=== PATIENT | male | born 1955 | race African-American/Black ===

== ENCOUNTER 2020-01-26 13:13 | Inpatient (IN) | payer OTHER ==
--- NOTE | 2020-01-26 13:38 | BHS.RME ---
Substance Use & Tx History - Substance Use History Alcohol Substance amount: 06/28 vodka Frequency of use: Daily Substance route: Oral Date of Last Use: 01/26/20 (9am) Nicotine Substance amount: 1 pack Frequency of use: Daily Substance route: Smoking Date of Last Use: 01/26/20 Physical/Psych/Mental Status - Behavior General Behavior: Increased activity (restlessness, agitation) Eye Contact: Normal - Cooperativeness Cooperativeness: Cooperative - Thinking Thought Processes: Tight, Logical, Goal Directed - Physical Health Problems Is patient presently having any pain?: No Does patient presently have any injuries (include location): No Does patient currently have a fever: No Is patient : No CIWA Nausea/Vomitin-Mild Nausea/No Vomiting Muscle Tremors: 4-Moderate,w/Arms Extend Anxiety: 3 Agitation: 3 Paroxysmal Sweats: 4-Forehead w/Sweat Beads Orientation: 0-Oriented Tacttile Disturbances: 0-None Auditory Disturbances: 0-None Visual Disturbances: 0-None Headache: 0-None Present CIWA-Ar Total Score: 15
[2020-01-26 14:16] VITALS: BMI 23.0
--- NOTE | 2020-01-26 14:24 | HP ---
CIWA Score Nausea/Vomitin-Mild Nausea/No Vomiting Muscle Tremors: 4-Moderate,w/Arms Extend Anxiety: 3 Agitation: 3 Paroxysmal Sweats: 4-Forehead w/Sweat Beads Orientation: 0-Oriented Tacttile Disturbances: 0-None Auditory Disturbances: 0-None Visual Disturbances: 0-None Headache: 0-None Present CIWA-Ar Total Score: 15 - Admission Criteria OASAS Guidelines: Admission for Medically Managed Detox: Requires at least one of the followin. CIWA greater than 12 2. Seizures within the past 24 hours 3. Delirium tremens within the past 24 hours 4. Hallucinations within the past 24 hours 5. Acute intervention needed for co occurring medical disorder 6. Acute intervention needed for co occurring psychiatric disorder 7. Severe withdrawal that cannot be handled at a lower level of care (continued vomiting, continued diarrhea, abnormal vital signs) requiring intravenous medication and/or fluids 8. Admitting History and Physical - Admission Chief Complaint: " I need to be on detox." History of Present Illness: 64 year old male with history of alcohol dependence with intoxication. He was last here in 2014 and did well. However, he relapsed and is now out of control. Alcohol: 1/5 vodka daily, started drinking at age 13 and last used 01/26/20. 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 He has no legal issues at this time. Urine Tox: Negative for all other substances. MILAGRO=0.232 CIWA=15 He meets criteria for detox as he poses a high risk for outpatient detox and has untreated psychiatric co-morbidity. History Source: Patient Limitations to Obtaining History: No Limitations - Past Medical History Cardiovascular: Yes: CAD Musculoskeletal: Yes: Other (peripheral vascular disease) - Smoking History Smoking history: Current every day smoker Have you smoked in the past 12 months: Yes Aproximately how many cigarettes per day: 20 - Alcohol/Substance Use Hx Alcohol Use: Yes Admission ROS S - HPI Allergies/Adverse Reactions: Allergies Allergy/AdvReac Type Severity Reaction Status Date / Time No Known Allergies Allergy Verified 04/06/15 16:57 Exam Limitations: No Limitations - Ebola screening Have you traveled outside of the country in the last 21 days: No Have you had contact with anyone from an Ebola affected area: No Have you been sick,other than usual withdrawal symptoms: No Do you have a fever: No - Review of Systems Constitutional: Diaphoresis, Unintentional Wgt. Loss EENT: reports: No Symptoms Reported Respiratory: reports: No Symptoms reported Cardiac: reports: No Symptoms Reported GI: reports: No Symptoms Reported : reports: No Symptoms Reported Musculoskeletal: reports: No Symptoms Reported Integumentary: reports: No Symptoms Reported Neuro: reports: No Symptoms reported Endocrine: reports: No Symptoms Reported Hematology: reports: No Symptoms Reported Psychiatric: reports: Judgement Intact, Mood/Affect Appropiate, Agitated, Anxious Other Systems: Reviewed and Negative Patient History - Patient Medical History Hx Anemia: No Hx Asthma: No Hx Chronic Obstructive Pulmonary Disease (COPD): No Hx Cancer: No Hx Cardiac Disorders: Yes (Cardiac cath with one stent) Hx Congestive Heart Failure: Yes (had a heart attack ) Hx Hypertension: Yes Hx Hypercholesterolemia: No Hx Pacemaker: No HX Cerebrovascular Accident: No Hx Seizures: No Hx Dementia: No (balck outs ) Hx Diabetes: No Hx Gastrointestinal Disorders: No Hx Liver Disease: No Hx Genitourinary Disorders: No Hx Sexually Transmitted Disorders: No Hx Renal Disease (ESRD): No Hx Thyroid Disease: No Hx Human Immunodeficiency Virus (HIV): No Hx Hepatitis C: No Hx Depression: Yes (not in tx.) Hx Suicide Attempt: No Hx Bipolar Disorder: No Hx Schizophrenia: No - Patient Surgical History Past Surgical History: Yes Hx Cataract Extraction: Yes (bilateral eyes) Hx Cardiac Surgery: Yes (Cardiac cath with one stent in 2012) Anesthesia Reaction: No - Smoking Cessation Smoking history: Current every day smoker Have you smoked in the past 12 months: Yes Aproximately how many cigarettes per day: 20 Hx Chewing Tobacco Use: No Initiated information on smoking cessation: Yes 'Breaking Loose' booklet given: 01/26/20 - Substances abused Alcohol Substance route: Oral Frequency: Daily Amount used: 1/5 vodka Age of first use: 13 Date of last use: 01/26/20 (9am) Admission Physical Exam BHS - Vital Signs Vital Signs: Vital Signs - 24 hr 01/26/20 14:15 Temperature 97.8 F Pulse Rate 99 H Respiratory 18 Rate Blood Pressure 133/94 - Physical General Appearance: Yes: Mild Distress, Alcohol on Breath, Intoxicated, Thin, Tremorous, Irritable, Sweating, Anxious HEENTM: Yes: Hearing grossly Normal, Normal ENT Inspection, Normocephalic, Nor mal Voice, TIFFANIE, Pharynx Normal, Tm's normal Respiratory: Yes: Chest Non-Tender, Lungs Clear, Normal Breath Sounds, No Respiratory Distress, No Accessory Muscle Use Neck: Yes: No masses,lesions,Nodules, Supple, Trachea in good position Breast: Yes: Within Normal Limits Cardiology: Yes: Regular Rhythm, S1, S2, Tachycardia Abdominal: Yes: Non Tender, Flat, Soft, Increased Bowel Sounds Genitourinary: Yes: Within Normal Limits Back: Yes: Normal Inspection Musculoskeletal: Yes: full range of Motion, Gait Steady, Pelvis Stable Extremities: Yes: Normal Capillary Refill, Normal Inspection, Normal Range of Motion, Non-Tender, Other (old healed scar left leg) Neurological: Yes: seo coordinator II-XII NML intact, Fully Oriented, Alert, Motor Strength 5/5, Normal Mood/Affect, Normal Response Integumentary: Yes: Normal Color, Dry, Warm Lymphatic: Yes: Within Normal Limits - Diagnostic (1) Alcohol dependence with intoxication Current Visit: Yes Status: Acute (2) CHF (congestive heart failure) Current Visit: Yes Status: Acute (3) HTN (hypertension) Current Visit: Yes Status: Acute (4) Nicotine dependence Current Visit: Yes Status: Acute (5) Atherosclerotic heart disease Current Visit: Yes Status: Chronic Cleared for Admission [facility] - Detox or Rehab [facility] Level of Care: Medically Managed Detox Regimen/Protocol: Librium Claeared for Rehab Admission: No Screened but not Admitted - Documentation of Visit Screened but not Admitted: No Breathalyzer - Breathalyzer Breathalyzer: 0.232 Vital Signs - Vital Signs Vital signs refused: Yes Temperature: 97.8 F Temperature source: Tympanic Pulse Rate: 99 Respiratory Rate: 10 Blood Pressure: 133/94 BP Location: Right Arm - Height Height: 6 ft 5 in - Weight Weight: 194 lb Weight measurement method: Standing scale - BMI Body Mass Index (BMI): 23.0 - Bowel Function Bowel Movement: No Urine Drug Screen - Test Device Lot number: [id number] Expiration date: 09/29/21 - Control Is test valid?: Yes - Results Drug screen NEGATIVE: Yes Inpatient Rehab Admission - Rehab Decision to Admit Inpatient rehab admission?: No
[2020-01-26] MEDS ORDERED: METHOCARBAMOL 500 MG TABLET PO PRN (14:29)
[2020-01-26] MEDS ORDERED: BISMUTH SUBSALICYLATE 262 MG/15 ML BTL PO PRN (14:29)
[2020-01-26] MEDS ORDERED: ACETAMINOPHEN 325 MG TABLET (FP) PO PRN ×2 (14:29)
[2020-01-26] MEDS ORDERED: MAGNESIUM CITRATE 300 ML BOTTLE PO PRN (14:29)
[2020-01-26] MEDS ORDERED: MAG HYDROX/AL HYDROX/SIMETH 30 ML UNIT-DOSE CUP PO PRN (14:29)
[2020-01-26] MEDS ORDERED: MENTHOL/PHENOL 1 EACH UD MM PRN (14:29)
[2020-01-26] MEDS ORDERED: IBUPROFEN 400 MG TABLET (FP) PO PRN (14:29)
[2020-01-26] MEDS ORDERED: MAGNESIUM HYDROX 2400MG/30ML ORAL SUSPENSION 30 ML CUP PO PRN (14:29)
[2020-01-26] MEDS ORDERED: chlordiazePOXIDE HCL 25 MG CAPSULE PO PRN (14:29)
[2020-01-26] MEDS ORDERED: ONDANSETRON *ODT* 4 MG TABLET SL ONE (14:29)
[2020-01-26] MEDS ORDERED: TUBERCULIN PPD 5 TU/0.1ML VIAL ID ONE (15:29)
[2020-01-26] MEDS: ASPIRIN 81 MG CHEWABLE TABLETS PO SCH (15:45)
[2020-01-26] MEDS: NICOTINE 7 MG/24 HOURS TOPICAL PATCH TD SCH (15:45)
[2020-01-26] MEDS: PRENATAL VITAMINS W/ FOLIC ACID TABLET (FP) PO SCH (15:45)
[2020-01-26 17:06] LABS: HEMATOCRIT 42.9 % (35.4-49); HEMOGLOBIN 14.1 GM/dL (11.7-16.9); MCH 31.9 pg (25.7-33.7); MCHC 32.9 g/dl (32.0-35.9); MEAN PLT VOLUME 8.2 fl (7.5-11.1); PLATELET COUNT 415 K/MM3 (134-434); RBC 4.42 M/mm3 (4.00-5.60); RDW 14.3 % (11.9-15.9); WHITE BLOOD COUNT 7.3 K/mm3 (4.0-10.0)
[2020-01-26 17:21] LABS: BILIRUBIN,TOTAL 0.6 mg/dL (0.2-1); BLOOD UREA NITROGEN 8.5 mg/dL (7-18); CALCIUM 9.1 mg/dL (8.5-10.1); CREATININE 1.3 mg/dL (0.55-1.3); POTASSIUM 4.1 mmol/L (3.5-5.1); TOT PROT 7.8 g/dl (6.4-8.2)
[2020-01-26] MEDS: hydrOXYzine PAMOATE 25 MG CAPSULE (FP) PO SCH ×2 (17:52→22:45)
[2020-01-26] MEDS: chlordiazePOXIDE HCL 25 MG CAPSULE PO SCH ×2 (17:52→22:45)
[2020-01-26] MEDS: ATORVASTATIN CA 40 MG TABLET (FP) PO SCH (22:45)
[2020-01-26] MEDS: MELATONIN 5 MG TABLETS PO SCH (22:45)
[2020-01-26] MEDS: THIAMINE HCL 100 MG TABLET (FP) PO SCH (22:45)
[2020-01-27] MEDS: chlordiazePOXIDE HCL 25 MG CAPSULE PO SCH ×4 (06:49→22:23)
[2020-01-27] MEDS: hydrOXYzine PAMOATE 25 MG CAPSULE (FP) PO SCH ×5 (06:50→22:23)
--- NOTE | 2020-01-27 09:14 | EKG ---
Test Reason : Blood Pressure : / mmHG Vent. Rate : 088 BPM Atrial Rate : 088 BPM P-R Int : 140 ms QRS Dur : 096 ms QT Int : 398 ms P-R-T Axes : 070 010 -75 degrees QTc Int : 481 ms NORMAL SINUS RHYTHM T WAVE ABNORMALITY, CONSIDER INFEROLATERAL ISCHEMIA PROLONGED QT ABNORMAL ECG NO PREVIOUS ECGS AVAILABLE Confirmed by Killian Estevez ([id number]) on 01/27/2020 9:13:17 AM Referred By: Confirmed By:Killian Estevez
[2020-01-27] MEDS: ASPIRIN 81 MG CHEWABLE TABLETS PO SCH (10:26)
[2020-01-27] MEDS: NICOTINE 7 MG/24 HOURS TOPICAL PATCH TD SCH (10:26)
[2020-01-27] MEDS: CARVEDILOL 6.25 MG TABLET (FP) PO SCH (10:26)
[2020-01-27] MEDS: PRENATAL VITAMINS W/ FOLIC ACID TABLET (FP) PO SCH (10:26)
[2020-01-27] MEDS: LISINOPRIL 10 MG TABLET (FP) PO SCH (10:26)
[2020-01-27] MEDS: PRASUGREL HCL 10 MG TAB PO SCH (10:26)
--- NOTE | 2020-01-27 11:47 | CONSULT ---
[facility] Psychiatric Consult - Data Date of interview: 01/27/20 Admission source: [facility] Identifying data: Patient is a 64 year old single male, father of one, retired, domiciled, and is supported by [facility]. This is one of multiple admissions for patient. Patient admitted to for alcohol dependence. Substance Abuse History: Smoking Cessation. Smoking history: Current every day smoker. Have you smoked in the past 12 months: Yes. Aproximately how many cigarettes per day: 20. Hx Chewing Tobacco Use: No. Initiated information on smoking cessation: Yes. 'Breaking Loose' booklet given: 01/26/20. - Substances abused. Alcohol. Substance route: Oral. Frequency: Daily. Amount used: 06/28 vodka. Age of first use: 13. Date of last use: 01/26/20 (9am) Medical History: Significant for history of CAD, HTN, CHF and S/P bilateral Cataract surgery Psychiatric History: Patient reports history of two psychiatric hospitalizations at [facility] approximately ten years ago due to depression and suicidal ideation. Mr. Campbell reports history of one suicide attempt via overdose. States that he last saw a psychiatrist at his place of residence ([facility] on [address]) five months ago. Patient unsure of medications prescribed and reports most recently taking medications several months ago. Patient reports a diagnosis of depression and anxiety. Patient denies thoughts or urges to hurt self or others. Physical/Sexual Abuse/Trauma History: denies. Mental Status Exam - Mental Status Exam Alert and Oriented to: Time, Place, Person Cognitive Function: Good Patient Appearance: Unkempt Mood: Withdrawn, Hopeful Affect: Mood Congruent Patient Behavior: Cooperative Speech Pattern: Appropriate Voice Loudness: Mildly Soft/Quiet Thought Process: Goal Oriented Thought Disorder: Not Present Hallucinations: Denies Suicidal Ideation: Denies Homicidal Ideation: Denies Insight/Judgement: Poor Sleep: Fair Appetite: Fair Muscle strength/Tone: Normal Gait/Station: Other (Not discussed.) Psychiatric Findings - Problem List ([place] 1, 2,3) (1) Alcohol use disorder Status: Acute (2) Alcohol-induced mood disorder Status: Acute - Initial Treatment Plan Initial Treatment Plan: Psychoeducation provided. Detoxification in progress. Observation.
--- NOTE | 2020-01-27 12:49 | PN ---
S CIWA - CIWA Score Nausea/Vomitin-No Nausea/No Vomiting Muscle Tremors: 5 Anxiety: 4-Mod. Anxious/Guarded Agitation: 3 Paroxysmal Sweats: 1-Minimal Palms Moist Orientation: 0-Oriented Tacttile Disturbances: 0-None Auditory Disturbances: 0-None Visual Disturbances: 0-None Headache: 0-None Present CIWA-Ar Total Score: 13 BHS Progress Note (SOAP) Subjective: Pt is a 64 y/o male admitted to detox for withdrawal sx. Pt is oob ambulated with help due to unsteady gait and tremors. c/o Tremors anxiety chills Objective: 01/27/20 12:47 Vital Signs - 24 hr 01/26/20 01/26/20 01/26/20 14:15 14:29 17:15 Temperature 97.8 F 97.8 F 97.5 F L Pulse Rate 99 H 99 H 100 H Respiratory 18 10 18 Rate Blood Pressure 133/94 133/94 135/94 O2 Sat by Pulse Oximetry (%) 01/26/20 01/27/20 21:05 05:40 Temperature 98.3 F 98.0 F Pulse Rate 100 H 97 H Respiratory 18 18 Rate Blood Pressure 143/93 126/84 O2 Sat by Pulse 95 96 Oximetry (%) Laboratory Tests 01/26/20 01/26/20 01/26/20 14:35 14:35 14:35 WBC 7.3 RBC 4.42 Hgb 14.1 Hct 42.9 MCV 97.0 H MCH 31.9 MCHC 32.9 RDW 14.3 Plt Count 415 D MPV 8.2 D Sodium 140 Potassium 4.1 Chloride 103 Carbon Dioxide 20 L Anion Gap 16 BUN 8.5 Creatinine 1.3 Est GFR (CKD-EPI)AfAm 67.30 Est GFR (CKD-EPI)NonAf 58.07 POC Glucometer Random Glucose 99 Calcium 9.1 Total Bilirubin 0.6 AST 75 H ALT 53 Alkaline Phosphatase 81 Total Protein 7.8 Albumin 4.0 Syphilis Serology Reactive A* RPR Titer COVID-19 (JOSE) 01/26/20 01/26/20 01/26/20 14:35 14:40 15:12 WBC RBC Hgb Hct MCV MCH MCHC RDW Plt Count MPV Sodium Potassium Chloride Carbon Dioxide Anion Gap BUN Creatinine Est GFR (CKD-EPI)AfAm Est GFR (CKD-EPI)NonAf POC Glucometer 115 Random Glucose Calcium Total Bilirubin AST ALT Alkaline Phosphatase Total Protein Albumin Syphilis Serology RPR Titer Reactive 1:1 H D COVID-19 (JOSE) Not detected covid-19 not detected Assessment: 01/27/20 12:48 withdrawal sa Plan: cont detox increase po fluids maintain safety cane for ambulation wheelchair for getting around unit if needed.
[2020-01-27 20:34] LABS: URINE APPEARANCE TURBID; URINE BILIRUBIN 1+ (NEGATIVE); URINE COLOR DK YELLOW; URINE GLUCOSE (UA) 1+ (NEGATIVE); URINE KETONE TRACE (NEGATIVE); URINE LEUK ESTERASE NEGATIVE (NEGATIVE); URINE NITRITE NEGATIVE (NEGATIVE); URINE PROTEIN TRACE (NEGATIVE)
[2020-01-27] MEDS: MELATONIN 5 MG TABLETS PO SCH (22:22)
[2020-01-27] MEDS: THIAMINE HCL 100 MG TABLET (FP) PO SCH (22:23)
[2020-01-27] MEDS: ATORVASTATIN CA 40 MG TABLET (FP) PO SCH (22:23)
--- NOTE | 2020-01-28 06:40 | PN ---
[facility] Progress Note Note: Patient reports that he was coming back from the bathroom, tried to climb back to bed and fell. Fall was not witnessed. fall protocol #1 initiated. He is complaining of right hip pain rated at 8/10. No bruises, laceration, swelling or redness noted. Guarding behavior noted and patient cries out in pain when his right hip is palpated. He is alert and oriented x 3, vital signs stable and ambulates with unsteady gait. Fall was not witnessed. Fall protocol #1 initiated. Patient is to be transferred to ER. Endorsed to Dr. Medhat Trevino. Vital Signs Temperature 97.1 F L 01/28/20 05:38 Pulse Rate 73 01/28/20 05:38 Respiratory Rate 17 01/28/20 05:38 Blood Pressure 130/85 01/28/20 05:38 O2 Sat by Pulse Oximetry (%) 96 01/28/20 05:38 Laboratory Last Values WBC 7.3 K/mm3 (4.0-10.0) 01/26/20 14:35 RBC 4.42 M/mm3 (4.00-5.60) 01/26/20 14:35 Hgb 14.1 GM/dL (11.7-16.9) 01/26/20 14:35 Hct 42.9 % (35.4-49) 01/26/20 14:35 MCV 97.0 fl (80-96) H 01/26/20 14:35 MCH 31.9 pg (25.7-33.7) 01/26/20 14:35 MCHC 32.9 g/dl (32.0-35.9) 01/26/20 14:35 RDW 14.3 % (11.9-15.9) 01/26/20 14:35 Plt Count 415 K/MM3 (134-434) D 01/26/20 14:35 MPV 8.2 fl (7.5-11.1) D 01/26/20 14:35 Sodium 140 mmol/L (136-145) 01/26/20 14:35 Potassium 4.1 mmol/L (3.5-5.1) 01/26/20 14:35 Chloride 103 mmol/L (98-107) 01/26/20 14:35 Carbon Dioxide 20 mmol/L (21-32) L 01/26/20 14:35 Anion Gap 16 MMOL/L (8-16) 01/26/20 14:35 BUN 8.5 mg/dL (7-18) 01/26/20 14:35 Creatinine 1.3 mg/dL (0.55-1.3) 01/26/20 14:35 Est GFR (CKD-EPI)AfAm 67.30 01/26/20 14:35 Est GFR (CKD-EPI)NonAf 58.07 01/26/20 14:35 POC Glucometer 115 UNITS (80-120) 01/26/20 15:12 Random Glucose 99 mg/dL (74-106) 01/26/20 14:35 Calcium 9.1 mg/dL (8.5-10.1) 01/26/20 14:35 Total Bilirubin 0.6 mg/dL (0.2-1) 01/26/20 14:35 AST 75 U/L (15-37) H 01/26/20 14:35 ALT 53 U/L (13-61) 01/26/20 14:35 Alkaline Phosphatase 81 U/L (45-117) 01/26/20 14:35 Total Protein 7.8 g/dl (6.4-8.2) 01/26/20 14:35 Albumin 4.0 g/dl (3.4-5.0) 01/26/20 14:35 Urine Color Dk yellow 01/27/20 17:45 Urine Appearance Turbid 01/27/20 17:45 Urine pH 5.0 (5.0-8.0) 01/27/20 17:45 Ur Specific [place] 1.026 (1.010-1.035) 01/27/20 17:45 Urine Protein Trace (NEGATIVE) 01/27/20 17:45 Urine Glucose (UA) 1+ (NEGATIVE) H 01/27/20 17:45 Urine Ketones Trace (NEGATIVE) H 01/27/20 17:45 Urine Blood Negative (NEGATIVE) 01/27/20 17:45 Urine Nitrite Negative (NEGATIVE) 01/27/20 17:45 Urine Bilirubin 1+ (NEGATIVE) H 01/27/20 17:45 Urine Urobilinogen 1.0 mg/dL (0.2-1.0) 01/27/20 17:45 Ur Leukocyte Esterase Negative (NEGATIVE) 01/27/20 17:45 Syphilis Serology Reactive (NONREACTIVE) A* 01/26/20 14:35 RPR Titer Reactive 1:1 (NONREACTIVE) H D 01/26/20 14:35 COVID-19 (JOSE) Not detected (Not Detected) 01/26/20 14:40 Action: Transfer patient to ER Motrin 400mg tablet oral for pain ordered Initiate fall protocol #1
[2020-01-28] MEDS: chlordiazePOXIDE HCL 25 MG CAPSULE PO SCH ×4 (06:45→22:03)
[2020-01-28] MEDS ORDERED: IBUPROFEN 400 MG TABLET (FP) PO ONE (06:55)
[2020-01-28] MEDS: hydrOXYzine PAMOATE 25 MG CAPSULE (FP) PO SCH ×5 (07:21→21:55)
--- NOTE | 2020-01-28 10:44 | PN ---
[facility] Progress Note Note: recieved call from Caroline DUFF earlier from Mr. Travon Romero RN who reported to creative services writer that patient is cleared and will be sent back to [facility] to continue treatment . Verbally reported CT Scans were normal. will review reports and await for pt's return to the unit.
[2020-01-28] MEDS: CARVEDILOL 6.25 MG TABLET (FP) PO SCH (11:28)
[2020-01-28] MEDS: ASPIRIN 81 MG CHEWABLE TABLETS PO SCH (11:28)
[2020-01-28] MEDS: LISINOPRIL 10 MG TABLET (FP) PO SCH (11:28)
[2020-01-28] MEDS: PRENATAL VITAMINS W/ FOLIC ACID TABLET (FP) PO SCH (11:29)
[2020-01-28] MEDS: NICOTINE 7 MG/24 HOURS TOPICAL PATCH TD SCH (11:29)
[2020-01-28] MEDS: PRASUGREL HCL 10 MG TAB PO SCH (11:29)
--- NOTE | 2020-01-28 14:23 | PN ---
S CIWA - CIWA Score Nausea/Vomitin-No Nausea/No Vomiting Muscle Tremors: 3 Anxiety: 4-Mod. Anxious/Guarded Agitation: 3 Paroxysmal Sweats: No Perspiration Orientation: 0-Oriented Tacttile Disturbances: 0-None Auditory Disturbances: 0-None Visual Disturbances: 0-None Headache: 0-None Present CIWA-Ar Total Score: 10 BHS Progress Note (SOAP) Subjective: Pt returned from [facility] ER around lunch time and was seen eating lunch in room. slight tremors anxiety agitation slight tiredness Objective: 01/28/20 14:22 Vital Signs - 24 hr 01/27/20 01/27/20 01/28/20 16:30 20:32 05:38 Temperature 97.5 F L 96.9 F L 97.1 F L Pulse Rate 96 H 83 73 Respiratory 18 17 17 Rate Blood Pressure 100/69 126/75 130/85 O2 Sat by Pulse 96 96 Oximetry (%) 01/28/20 12:25 Temperature 97.1 F L Pulse Rate 94 H Respiratory 18 Rate Blood Pressure 148/80 O2 Sat by Pulse Oximetry (%) Laboratory Tests 01/26/20 01/26/20 01/26/20 14:35 14:35 14:35 WBC 7.3 RBC 4.42 Hgb 14.1 Hct 42.9 MCV 97.0 H MCH 31.9 MCHC 32.9 RDW 14.3 Plt Count 415 D MPV 8.2 D Sodium 140 Potassium 4.1 Chloride 103 Carbon Dioxide 20 L Anion Gap 16 BUN 8.5 Creatinine 1.3 Est GFR (CKD-EPI)AfAm 67.30 Est GFR (CKD-EPI)NonAf 58.07 POC Glucometer Random Glucose 99 Calcium 9.1 Total Bilirubin 0.6 AST 75 H ALT 53 Alkaline Phosphatase 81 Total Protein 7.8 Albumin 4.0 Urine Color Urine Appearance Urine pH Ur Specific [place] Urine Protein Urine Glucose (UA) Urine Ketones Urine Blood Urine Nitrite Urine Bilirubin Urine Urobilinogen Ur Leukocyte Esterase Syphilis Serology Reactive A* RPR Titer COVID-19 (JOSE) 01/26/20 01/26/20 01/26/20 14:35 14:40 15:12 WBC RBC Hgb Hct MCV MCH MCHC RDW Plt Count MPV Sodium Potassium Chloride Carbon Dioxide Anion Gap BUN Creatinine Est GFR (CKD-EPI)AfAm Est GFR (CKD-EPI)NonAf POC Glucometer 115 Random Glucose Calcium Total Bilirubin AST ALT Alkaline Phosphatase Total Protein Albumin Urine Color Urine Appearance Urine pH Ur Specific [place] Urine Protein Urine Glucose (UA) Urine Ketones Urine Blood Urine Nitrite Urine Bilirubin Urine Urobilinogen Ur Leukocyte Esterase Syphilis Serology RPR Titer Reactive 1:1 H D COVID-19 (JOSE) Not detected 01/27/20 17:45 WBC RBC Hgb Hct MCV MCH MCHC RDW Plt Count MPV Sodium Potassium Chloride Carbon Dioxide Anion Gap BUN Creatinine Est GFR (CKD-EPI)AfAm Est GFR (CKD-EPI)NonAf POC Glucometer Random Glucose Calcium Total Bilirubin AST ALT Alkaline Phosphatase Total Protein Albumin Urine Color Dk yellow Urine Appearance Turbid Urine pH 5.0 Ur Specific [place] 1.026 Urine Protein Trace Urine Glucose (UA) 1+ H Urine Ketones Trace H Urine Blood Negative Urine Nitrite Negative Urine Bilirubin 1+ H Urine Urobilinogen 1.0 Ur Leukocyte Esterase Negative Syphilis Serology RPR Titer COVID-19 (JOSE) RAD/HIP & Pelvis-Right reports No acute pelvic or right hip pathology. CTScan Head without contrast: No CT evidence of acute intracranial pathology. A fracture is seen of the medial wall of the right orbit which may be chronic in nature. Alert o x 3, communicating coherently nad oob ambulating well with cane Assessment: 01/28/20 14:22 withdrawal sx post fall(unwitnessed) Plan: cont detox increase po fluids maintain safety
[2020-01-28] MEDS: THIAMINE HCL 100 MG TABLET (FP) PO SCH (21:55)
[2020-01-28] MEDS: ATORVASTATIN CA 40 MG TABLET (FP) PO SCH (21:55)
[2020-01-28] MEDS: MELATONIN 5 MG TABLETS PO SCH (21:55)
[2020-01-29] MEDS ORDERED: chlordiazePOXIDE HCL 10 MG CAPSULE PO PRN
[2020-01-29] MEDS: chlordiazePOXIDE HCL 10 MG CAPSULE PO SCH ×4 (06:37→22:28)
[2020-01-29] MEDS: hydrOXYzine PAMOATE 25 MG CAPSULE (FP) PO SCH ×5 (06:37→22:28)
[2020-01-29] MEDS ORDERED: MASKS NR ONE ×2 (09:05→16:59)
[2020-01-29] MEDS: LISINOPRIL 10 MG TABLET (FP) PO SCH (10:15)
[2020-01-29] MEDS: PRASUGREL HCL 10 MG TAB PO SCH (10:15)
[2020-01-29] MEDS: ASPIRIN 81 MG CHEWABLE TABLETS PO SCH (10:16)
[2020-01-29] MEDS: NICOTINE 7 MG/24 HOURS TOPICAL PATCH TD SCH (10:16)
[2020-01-29] MEDS: CARVEDILOL 6.25 MG TABLET (FP) PO SCH (10:16)
[2020-01-29] MEDS: PRENATAL VITAMINS W/ FOLIC ACID TABLET (FP) PO SCH (10:16)
--- NOTE | 2020-01-29 10:58 | PN ---
S CIWA - CIWA Score Nausea/Vomitin-No Nausea/No Vomiting Muscle Tremors: 2 Anxiety: 3 Agitation: 2 Paroxysmal Sweats: 1-Minimal Palms Moist Orientation: 0-Oriented Tacttile Disturbances: 0-None Auditory Disturbances: 0-None Visual Disturbances: 0-None Headache: 0-None Present CIWA-Ar Total Score: 8 BHS Progress Note (SOAP) Subjective: Pt is oob ambulating with steady gait. Pt is interested in aftercare and is working with his counselor to refer him to rehab upon discharge. slight anxiety sl tremors(which he says is always there) sweats Objective: 01/29/20 10:57 Vital Signs - 24 hr 01/28/20 01/28/20 01/28/20 10:58 12:25 14:30 Temperature 97.1 F L 97.1 F L 97.5 F L Pulse Rate 94 H 94 H 86 Respiratory 18 18 16 Rate Blood Pressure 148/80 148/80 124/73 O2 Sat by Pulse Oximetry (%) 01/28/20 01/28/20 01/28/20 16:30 16:46 18:30 Temperature 97.3 F L 97.3 F L 97.8 F Pulse Rate 85 85 99 H Respiratory 16 16 16 Rate Blood Pressure 122/79 122/79 125/81 O2 Sat by Pulse Oximetry (%) 01/28/20 01/28/20 01/28/20 20:14 21:30 22:30 Temperature 97.8 F 98.0 F 98.0 F Pulse Rate 88 100 H 100 H Respiratory 16 16 16 Rate Blood Pressure 131/74 121/68 121/68 O2 Sat by Pulse 96 Oximetry (%) 01/29/20 01/29/20 01/29/20 01:30 02:30 05:46 Temperature 97.8 F 97.7 F 97.7 F Pulse Rate 76 81 82 Respiratory 16 18 18 Rate Blood Pressure 97/59 L 117/72 129/91 O2 Sat by Pulse 97 96 Oximetry (%) 01/29/20 06:30 Temperature 97.7 F Pulse Rate 82 Respiratory 18 Rate Blood Pressure 129/91 O2 Sat by Pulse Oximetry (%) Laboratory Tests 01/26/20 01/26/20 01/26/20 14:35 14:35 14:35 WBC 7.3 RBC 4.42 Hgb 14.1 Hct 42.9 MCV 97.0 H MCH 31.9 MCHC 32.9 RDW 14.3 Plt Count 415 D MPV 8.2 D Sodium 140 Potassium 4.1 Chloride 103 Carbon Dioxide 20 L Anion Gap 16 BUN 8.5 Creatinine 1.3 Est GFR (CKD-EPI)AfAm 67.30 Est GFR (CKD-EPI)NonAf 58.07 POC Glucometer Random Glucose 99 Calcium 9.1 Total Bilirubin 0.6 AST 75 H ALT 53 Alkaline Phosphatase 81 Total Protein 7.8 Albumin 4.0 Urine Color Urine Appearance Urine pH Ur Specific [place] Urine Protein Urine Glucose (UA) Urine Ketones Urine Blood Urine Nitrite Urine Bilirubin Urine Urobilinogen Ur Leukocyte Esterase Syphilis Serology Reactive A* RPR Titer COVID-19 (JOSE) 01/26/20 01/26/20 01/26/20 14:35 14:40 15:12 WBC RBC Hgb Hct MCV MCH MCHC RDW Plt Count MPV Sodium Potassium Chloride Carbon Dioxide Anion Gap BUN Creatinine Est GFR (CKD-EPI)AfAm Est GFR (CKD-EPI)NonAf POC Glucometer 115 Random Glucose Calcium Total Bilirubin AST ALT Alkaline Phosphatase Total Protein Albumin Urine Color Urine Appearance Urine pH Ur Specific [place] Urine Protein Urine Glucose (UA) Urine Ketones Urine Blood Urine Nitrite Urine Bilirubin Urine Urobilinogen Ur Leukocyte Esterase Syphilis Serology RPR Titer Reactive 1:1 H D COVID-19 (JOSE) Not detected 01/27/20 17:45 WBC RBC Hgb Hct MCV MCH MCHC RDW Plt Count MPV Sodium Potassium Chloride Carbon Dioxide Anion Gap BUN Creatinine Est GFR (CKD-EPI)AfAm Est GFR (CKD-EPI)NonAf POC Glucometer Random Glucose Calcium Total Bilirubin AST ALT Alkaline Phosphatase Total Protein Albumin Urine Color Dk yellow Urine Appearance Turbid Urine pH 5.0 Ur Specific [place] 1.026 Urine Protein Trace Urine Glucose (UA) 1+ H Urine Ketones Trace H Urine Blood Negative Urine Nitrite Negative Urine Bilirubin 1+ H Urine Urobilinogen 1.0 Ur Leukocyte Esterase Negative Syphilis Serology RPR Titer COVID-19 (JOSE) RPR 1:1 (pt says he has no prior hx of syphilis but has been treated for Gonorrhea in the past). Reports no recent exposure and states he is willing to be treated if needed. Assessment: 01/29/20 11:08 w/s RPR 1:1 Plan: continue detox increase po fluids maintain safety Bicillin LA 2.4 million units I.M once d/w pt to follow up with PCP Dr. dajuan Garvin at [facility] in [place] for medical management after discharge. Pt is scheduled for discharge in the morning and likely referral to [facility] Rehab. Pt stated he has all his meds at home and will follow up with his primary care after discharge.
[2020-01-29] MEDS ORDERED: PENICILLIN G BENZATHINE 2,400,000 UNIT/4 ML PFS IM ONE (12:05)
[2020-01-29] MEDS: NICOTINE POLACRILEX 2 MG GUM BUC PRN (20:01)
[2020-01-29] MEDS: ATORVASTATIN CA 40 MG TABLET (FP) PO SCH (22:28)
[2020-01-29] MEDS: MELATONIN 5 MG TABLETS PO SCH (22:28)
[2020-01-29] MEDS: THIAMINE HCL 100 MG TABLET (FP) PO SCH (22:28)
[2020-01-30] MEDS: chlordiazePOXIDE HCL 10 MG CAPSULE PO SCH ×2 (06:09→17:51)
[2020-01-30] MEDS: hydrOXYzine PAMOATE 25 MG CAPSULE (FP) PO SCH ×5 (06:10→21:21)
[2020-01-30] MEDS: LISINOPRIL 10 MG TABLET (FP) PO SCH (10:57)
[2020-01-30] MEDS: PRENATAL VITAMINS W/ FOLIC ACID TABLET (FP) PO SCH (10:57)
[2020-01-30] MEDS: CARVEDILOL 6.25 MG TABLET (FP) PO SCH (10:58)
[2020-01-30] MEDS: ASPIRIN 81 MG CHEWABLE TABLETS PO SCH (10:58)
[2020-01-30] MEDS: NICOTINE 7 MG/24 HOURS TOPICAL PATCH TD SCH (10:58)
[2020-01-30] MEDS: PRASUGREL HCL 10 MG TAB PO SCH (10:58)
--- NOTE | 2020-01-30 11:34 | PN ---
[facility] CIWA - CIWA Score Nausea/Vomitin-No Nausea/No Vomiting Muscle Tremors: None Anxiety: 2 Agitation: 0-Normal Activity Paroxysmal Sweats: 2 Orientation: 0-Oriented Tacttile Disturbances: 0-None Auditory Disturbances: 0-None Visual Disturbances: 0-None Headache: 0-None Present CIWA-Ar Total Score: 4 S Progress Note (SOAP) Subjective: c/o mild withdrawal symptoms. Objective: 01/30/20 11:31 Vital Signs 01/30/20 01/30/20 06:31 08:45 Temperature 97.1 F L 97.5 F L Pulse Rate 89 93 H Respiratory 18 18 Rate Blood Pressure 138/91 134/89 O2 Sat by Pulse 100 Oximetry (%) Laboratory Last Values WBC 7.3 K/mm3 (4.0-10.0) 01/26/20 14:35 RBC 4.42 M/mm3 (4.00-5.60) 01/26/20 14:35 Hgb 14.1 GM/dL (11.7-16.9) 01/26/20 14:35 Hct 42.9 % (35.4-49) 01/26/20 14:35 MCV 97.0 fl (80-96) H 01/26/20 14:35 MCH 31.9 pg (25.7-33.7) 01/26/20 14:35 MCHC 32.9 g/dl (32.0-35.9) 01/26/20 14:35 RDW 14.3 % (11.9-15.9) 01/26/20 14:35 Plt Count 415 K/MM3 (134-434) D 01/26/20 14:35 MPV 8.2 fl (7.5-11.1) D 01/26/20 14:35 Sodium 140 mmol/L (136-145) 01/26/20 14:35 Potassium 4.1 mmol/L (3.5-5.1) 01/26/20 14:35 Chloride 103 mmol/L (98-107) 01/26/20 14:35 Carbon Dioxide 20 mmol/L (21-32) L 01/26/20 14:35 Anion Gap 16 MMOL/L (8-16) 01/26/20 14:35 BUN 8.5 mg/dL (7-18) 01/26/20 14:35 Creatinine 1.3 mg/dL (0.55-1.3) 01/26/20 14:35 Est GFR (CKD-EPI)AfAm 67.30 01/26/20 14:35 Est GFR (CKD-EPI)NonAf 58.07 01/26/20 14:35 POC Glucometer 115 UNITS (80-120) 01/26/20 15:12 Random Glucose 99 mg/dL (74-106) 01/26/20 14:35 Calcium 9.1 mg/dL (8.5-10.1) 01/26/20 14:35 Total Bilirubin 0.6 mg/dL (0.2-1) 01/26/20 14:35 AST 75 U/L (15-37) H 01/26/20 14:35 ALT 53 U/L (13-61) 01/26/20 14:35 Alkaline Phosphatase 81 U/L (45-117) 01/26/20 14:35 Total Protein 7.8 g/dl (6.4-8.2) 01/26/20 14:35 Albumin 4.0 g/dl (3.4-5.0) 01/26/20 14:35 Urine Color Dk yellow 01/27/20 17:45 Urine Appearance Turbid 01/27/20 17:45 Urine pH 5.0 (5.0-8.0) 01/27/20 17:45 Ur Specific [place] 1.026 (1.010-1.035) 01/27/20 17:45 Urine Protein Trace (NEGATIVE) 01/27/20 17:45 Urine Glucose (UA) 1+ (NEGATIVE) H 01/27/20 17:45 Urine Ketones Trace (NEGATIVE) H 01/27/20 17:45 Urine Blood Negative (NEGATIVE) 01/27/20 17:45 Urine Nitrite Negative (NEGATIVE) 01/27/20 17:45 Urine Bilirubin 1+ (NEGATIVE) H 01/27/20 17:45 Urine Urobilinogen 1.0 mg/dL (0.2-1.0) 01/27/20 17:45 Ur Leukocyte Esterase Negative (NEGATIVE) 01/27/20 17:45 Syphilis Serology Reactive (NONREACTIVE) A* 01/26/20 14:35 RPR Titer Reactive 1:1 (NONREACTIVE) H D 08/04/20 14:35 COVID-19 (JOSE) Not detected (Not Detected) 01/26/20 14:40 Labs noted. Assessment: 01/30/20 11:32 AOX3 and in no acute respiratory distress. Full ROM, ambulating in the unit. Mild Withdrawal symptoms. For d/c tomorrow. Plan: continue detox. D/C in AM.
[2020-01-30] MEDS: THIAMINE HCL 100 MG TABLET (FP) PO SCH (21:21)
[2020-01-30] MEDS: ATORVASTATIN CA 40 MG TABLET (FP) PO SCH (21:21)
[2020-01-30] MEDS: MELATONIN 5 MG TABLETS PO SCH (21:22)
[2020-01-30] MEDS: NICOTINE POLACRILEX 2 MG GUM BUC PRN (23:56)
[2020-01-31] MEDS ORDERED: chlordiazePOXIDE HCL 10 MG CAPSULE PO ONE (05:00)
[2020-01-31] MEDS: hydrOXYzine PAMOATE 25 MG CAPSULE (FP) PO SCH ×2 (05:27→10:29)
[2020-01-31 05:39] VITALS: TEMP 97.1
--- NOTE | 2020-01-31 08:24 | DS ---
[facility] Detox Discharge Summary Admission Date: 01/26/20 Discharge Date: 01/31/20 - History Present History: Alcohol Dependence Additional Comments: 64 years old male admitted on 01/26/20 for alcohol withdrawal sx management treated with librium detox regiment seen by psychiatrist no medical intervention fell on 01/28/20 sent to ER around 6 am return to [facility] around [address] of the head and x ray of the right hip mr zaidi denies pain of the hip denies pain of the head no visible injury noted at this time mr zaidi has completed the librum detox regiment and is tolerated well alert oriented to person and place reoriented to date of week speech clearly ambulating with cane slow steady from bed to bathroom General Appearance: Yes: Mild Distress, Alcohol on Breath, Intoxicated, Thin, Tremorous, Irritable, Sweating, Anxious HEENTM: Yes: Hearing grossly Normal, Normal ENT Inspection, Normocephalic, Normal Voice, TIFFANIE, Pharynx Normal, Tm's normal Respiratory: Yes: Chest Non-Tender, Lungs Clear, Normal Breath Sounds, No Respiratory Distress, No Accessory Muscle Use Neck: Yes: No masses,lesions,Nodules, Supple, Trachea in good position Breast: Yes: Within Normal Limits Cardiology: Yes: Regular Rhythm, S1, S2, Tachycardia Abdominal: Yes: Non Tender, Flat, Soft, Increased Bowel Sounds Genitourinary: Yes: Within Normal Limits Back: Yes: Normal Inspection Musculoskeletal: Yes: full range of Motion, Gait Steady, Pelvis Stable Extremities: Yes: Normal Capillary Refill, Normal Inspection, Normal Range of Motion, Non-Tender, Other (old healed scar left leg) Neurological: Yes: 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 NML intact, Fully Oriented, Alert, Motor Strength 5/5, Normal Mood/Affect, Normal Response Integumentary: Yes: Normal Color, Dry, Warm Lymphatic: Yes: Within Normal Limits Pertinent Past History: time for discharge 45 minutes transferred order set from detox to rehab - Physical Exam Results Vital Signs: Vital Signs Temperature 97.1 F L 01/31/20 05:37 Pulse Rate 79 01/31/20 05:37 Respiratory Rate 18 01/31/20 05:37 Blood Pressure 148/98 01/31/20 05:37 O2 Sat by Pulse Oximetry (%) 96 01/31/20 05:37 Pertinent Admission Physical Exam Findings: alcohol withdrawal Vital Signs - 24 hr 01/30/20 01/30/20 01/30/20 12:42 16:46 20:56 Temperature 97.5 F L 97.5 F L 97.5 F L Pulse Rate 100 H 109 H 90 Respiratory 18 16 16 Rate Blood Pressure 121/88 118/83 122/83 O2 Sat by Pulse 99 97 Oximetry (%) 01/31/20 01/31/20 05:37 08:38 Temperature 97.1 F L 97.1 F L Pulse Rate 79 98 H Respiratory 18 20 Rate Blood Pressure 148/98 117/85 O2 Sat by Pulse 96 Oximetry (%) Laboratory Tests 01/26/20 01/26/20 01/26/20 14:35 14:35 14:35 WBC 7.3 RBC 4.42 Hgb 14.1 Hct 42.9 MCV 97.0 H MCH 31.9 MCHC 32.9 RDW 14.3 Plt Count 415 D MPV 8.2 D Sodium 140 Potassium 4.1 Chloride 103 Carbon Dioxide 20 L Anion Gap 16 BUN 8.5 Creatinine 1.3 Est GFR (CKD-EPI)AfAm 67.30 Est GFR (CKD-EPI)NonAf 58.07 POC Glucometer Random Glucose 99 Calcium 9.1 Total Bilirubin 0.6 AST 75 H ALT 53 Alkaline Phosphatase 81 Total Protein 7.8 Albumin 4.0 Urine Color Urine Appearance Urine pH Ur Specific [place] Urine Protein Urine Glucose (UA) Urine Ketones Urine Blood Urine Nitrite Urine Bilirubin Urine Urobilinogen Ur Leukocyte Esterase Syphilis Serology Reactive A* RPR Titer COVID-19 (JOSE) 01/26/20 01/26/20 01/26/20 14:35 14:40 15:12 WBC RBC Hgb Hct MCV MCH MCHC RDW Plt Count MPV Sodium Potassium Chloride Carbon Dioxide Anion Gap BUN Creatinine Est GFR (CKD-EPI)AfAm Est GFR (CKD-EPI)NonAf POC Glucometer 115 Random Glucose Calcium Total Bilirubin AST ALT Alkaline Phosphatase Total Protein Albumin Urine Color Urine Appearance Urine pH Ur Specific [place] Urine Protein Urine Glucose (UA) Urine Ketones Urine Blood Urine Nitrite Urine Bilirubin Urine Urobilinogen Ur Leukocyte Esterase Syphilis Serology RPR Titer Reactive 1:1 H D COVID-19 (JOSE) Not detected 01/27/20 17:45 WBC RBC Hgb Hct MCV MCH MCHC RDW Plt Count MPV Sodium Potassium Chloride Carbon Dioxide Anion Gap BUN Creatinine Est GFR (CKD-EPI)AfAm Est GFR (CKD-EPI)NonAf POC Glucometer Random Glucose Calcium Total Bilirubin AST ALT Alkaline Phosphatase Total Protein Albumin Urine Color Dk yellow Urine Appearance Turbid Urine pH 5.0 Ur Specific [place] 1.026 Urine Protein Trace Urine Glucose (UA) 1+ H Urine Ketones Trace H Urine Blood Negative Urine Nitrite Negative Urine Bilirubin 1+ H Urine Urobilinogen 1.0 Ur Leukocyte Esterase Negative Syphilis Serology RPR Titer COVID-19 (JOSE) lab noted syphilis contacted treated - Treatment Hospital Course: Detox Protocol Followed, Detoxed Safely, Responded well, Discharged Condition Good, Rehab Referral Accepted Patient has Accepted a Re[facility] Referral to: [facility] - Medication Discharge Medications: Ambulatory Orders Aspirin [ASA -] 81 mg PO DAILY 09/27/14 Atorvastatin Ca [Lipitor -] 40 mg PO HS 09/27/14 Carvedilol [Coreg -] 6.25 mg PO DAILY 09/27/14 Prasugrel Hydrochloride [Effient -] 10 mg PO DAILY 09/27/14 Lisinopril [Prinivil] 10 mg PO DAILY #30 tablet 10/01/14 Metformin HCl [Glucophage] 500 mg PO DAILY 01/26/20 Metoprolol Succinate [Toprol Xl -] 25 mg PO DAILY 01/26/20 - Diagnosis (1) Alcohol dependence, uncomplicated Current Visit: Yes Status: Acute (2) Atherosclerotic heart disease Current Visit: Yes Status: Chronic Qualifiers: Coronary Disease-Associated Artery/Lesion type: unspecified vessel or lesion type [place] vs. transplanted heart: unspecified whether [place] or transplanted heart Associated angina: angina presence unspecified Qualified Code(s): I25.10 - Atherosclerotic heart disease of [place] coronary artery without angina pectoris (3) Nicotine dependence Current Visit: Yes Status: Acute Qualifiers: Nicotine product type: cigarettes Substance use status: in withdrawal Qualified Code(s): F17.213 - Nicotine dependence, cigarettes, with withdrawal (4) HTN (hypertension) Current Visit: Yes Status: Chronic Qualifiers: Hypertension type: essential hypertension Qualified Code(s): I10 - Essential (primary) hypertension (5) CHF (congestive heart failure) Current Visit: Yes Status: Chronic Qualifiers: Heart failure type: unspecified Heart failure chronicity: unspecified Qualified Code(s): I50.9 - Heart failure, unspecified - AMA Did Patient Leave Against Medical Advice: No CIWA Score - CIWA Score Nausea/Vomitin-No Nausea/No Vomiting Muscle Tremors: None Anxiety: 1-Mildly Anxious Agitation: 0-Normal Activity Paroxysmal Sweats: 1-Minimal Palms Moist Orientation: 0-Oriented Tacttile Disturbances: 0-None Auditory Disturbances: 0-None Visual Disturbances: 0-None Headache: 0-None Present CIWA-Ar Total Score: 2
[2020-01-31 09:07] VITALS: BP 117/85; PULSE 98
[2020-01-31] MEDS: ASPIRIN 81 MG CHEWABLE TABLETS PO SCH (10:26)
[2020-01-31] MEDS: LISINOPRIL 10 MG TABLET (FP) PO SCH (10:27)
[2020-01-31] MEDS: CARVEDILOL 6.25 MG TABLET (FP) PO SCH (10:27)
[2020-01-31] MEDS: PRENATAL VITAMINS W/ FOLIC ACID TABLET (FP) PO SCH (10:27)
[2020-01-31] MEDS: PRASUGREL HCL 10 MG TAB PO SCH (10:27)
[2020-01-31] MEDS: NICOTINE 7 MG/24 HOURS TOPICAL PATCH TD SCH (10:28)
== END 2020-01-31 10:45 | disposition home or self-care (01) | DRG 775 ==
LOC: YASAS 13:13 → Y5N DETOX 14:32 → Y3N 01-29 14:34
PROVIDERS: ADMIT Allergy & Immunology; ATTEND Allergy & Immunology
PROC: HZ2ZZZZ Detoxification Services for Substance Abuse Treatment (ICD-10-PCS; principal; 2020-01-26)
DX: F10.230 Alcohol dependence with withdrawal, uncomplicated (principal); F10.220 Alcohol dependence with intoxication, uncomplicated; F10.24 Alcohol dependence with alcohol-induced mood disorder; F17.213 Nicotine dependence, cigarettes, with withdrawal; I11.0 Hypertensive heart disease with heart failure; I50.9 Heart failure, unspecified; I25.10 Atherosclerotic heart disease of native coronary artery without angina pectoris; M25.551 Pain in right hip; R00.0 Tachycardia, unspecified; Z87.438 Personal history of other diseases of male genital organs; Z95.5 Presence of coronary angioplasty implant and graft; W18.39XA Other fall on same level, initial encounter; Y93.01 Activity, walking, marching and hiking; Y92.230 Patient room in hospital as the place of occurrence of the external cause
CPT/HCPCS: 36415; 80053; 81003; 82962; 85027; 86593; 86780; 93005; 93010; U0003

== ENCOUNTER 2020-01-28 07:30 | Emergency (ER) | payer OTHER ==
[2020-01-28 07:46] VITALS: BP 128/79; PULSE 80; TEMP 99.2; BMI 32.3
--- NOTE | 2020-01-28 08:47 | PDOC ---
History of Present Illness - General Chief Complaint: Injury Stated Complaint: FALL Time Seen by Provider: 01/28/20 08:09 History Source: Patient, Old Records Exam Limitations: No Limitations - History of Present Illness Initial Comments: 01/28/20 08:27 64y/o M h/o etoh use sent from [facility] undergoing etoh detox/rehab sent for evaluation of fall. Per report, unwitnessed fall while walking back from bathroom this morning, c/o R hip pain to [facility] staff, sent to ED as fall protocol #1. here, pt without complaints. he recalls falling 2d ago but does not recall the events of falling this morning. he denies any pain here, including headache/vision change/neck pain. used to take coumadin for DVT, not on ac now. Past History - Medical History Allergies/Adverse Reactions: Allergies Allergy/AdvReac Type Severity Reaction Status Date / Time No Known Allergies Allergy Verified 09/27/14 16:57 Home Medications: Ambulatory Orders Aspirin [ASA -] 81 mg PO DAILY 09/27/14 Atorvastatin Ca [Lipitor -] 40 mg PO HS 09/27/14 Carvedilol [Coreg -] 6.25 mg PO DAILY 09/27/14 Prasugrel Hydrochloride [Effient -] 10 mg PO DAILY 09/27/14 Lisinopril [Prinivil] 10 mg PO DAILY #30 tablet 10/01/14 Metformin HCl [Glucophage] 500 mg PO DAILY 01/26/20 Metoprolol Succinate [Toprol Xl -] 25 mg PO DAILY 01/26/20 Anemia: No Asthma: No Cancer: No Cardiac Disorders: Yes (CAD) CVA: No COPD: No CHF: Yes (had a heart attack ) Dementia: No (balck outs ) Diabetes: Yes GI Disorders: No Disorders: No HTN: Yes Hypercholesterolemia: No Kidney Stones: No Liver Disease: No Seizures: No Thyroid Disease: No - Surgical History Cardiac Surgery: Yes (Cardiac cath with one stent in 2012) Orthopedic Surgery: Yes (R knee sx) - Reproductive History Testicular Surgery: No - Immunization History Td Vaccination: No TDAP Vaccination: No Immunization Up to Date: No - Psycho-Social/Smoking History Smoking History: Current every day smoker Have you smoked in the past 12 months: No Number of Cigarettes Smoked Daily: 20 Information on smoking cessation initiated: No 'Breaking Loose' booklet given: 01/26/20 - Substance Abuse Hx (Audit-C & DAST Scrn) How often the patient has a drink containing alcohol: Never Score: In Men: 4 or > Positive; In Women: 3 or > Positive: 0 Screen Result (Pos requires Nsg. Audit-10AR): Negative In the last yr the pt used illegal drug/Rx for NonMed reason: No Score: Yes response is considered Positive: 0 Screen Result (Positive result requires Nsg. DAST-10): Negative Review of Systems - Review of Systems Constitutional: No: Chills, Fever HEENTM: No: Recent change in vision, Double Vision Respiratory: No: Cough, Shortness of Breath Cardiac (ROS): No: Chest Pain ABD/GI: No: Nausea, Vomiting Musculoskeletal: Yes: See HPI Neurological: No: Headache All Other Systems: Reviewed and Negative *Physical Exam - Vital Signs Last Vital Signs Temp Pulse Resp BP Pulse Ox 99.2 F 80 16 128/79 100 01/28/20 07:42 01/28/20 07:42 01/28/20 07:42 01/28/20 07:42 01/28/20 07:42 - Physical Exam 01/28/20 08:47 Vital signs stable General: Patient is alert and in no acute distress. Speech is clear and appropriate. Seated comfortably on edge of stretcher, coherent and cooperative Head: Atraumatic and nontender. HEENT: Pupils are equal round and reactive to light, extraocular movements are intact. The tympanic membranes are clear, no hemotympanum. No facial deformity/tenderness, no septal hematoma. The oropharynx is clear. Neck: The trachea is midline, there is no stridor. There is no midline cervical spine tenderness, full range of motion of neck. Chest: Nontender, no ecchymosis or abrasions. Heart: S1-S2, regular rate and rhythm. No murmurs. Lungs: Clear to auscultation bilaterally. Symmetric chest rise. Abdomen: Soft/nontender/nondistended. Bowel sounds are normal. There is no abdominal or flank ecchymosis. Back/Pelvis: There is no midline spine tenderness or step-off. Pelvis is stable and nontender. Extremities: There is no extremity deformity or joint swelling. R hip discomfort to palpation but no swelling/ecchymosis, FROM with full strength. No other focal bony tenderness throughout. 2+ distal pulses throughout. Neuro: Alert and oriented x3. Cranial nerves II through XII are intact. 5 out of 5 motor strength x4 extremities. [id number] is intact. No pronator drift. Gait is stable. Skin: No abrasions/hematomas/lacerations. Psych: Affect is appropriate. ED Treatment Course - ADDITIONAL ORDERS Additional order review: Laboratory Results 01/28/20 07:50 POC Glucometer 229 01/28/20 07:50 POC Glucometer 229 - RADIOLOGY Radiology Studies Ordered: Category Date Time Status HEAD CT WITHOUT CONTRAST [CT] Stat CT Scan 01/28/20 08:06 Ordered HIP & PELVIS-RIGHT [RAD] Stat Radiology 01/28/20 08:16 Ordered Medical Decision Making - Medical Decision Making 01/28/20 08:51 64-year-old male sent from [facility] for evaluation of fall, no obvious traumatic injury on examination but sent a small cortical #1 for unwitnessed fall. Patient is not currently on anticoagulation, his neurological exam is normal, trauma exam is isolated to the right hip, though overall low suspicion given range of motion. Neurovascular intact. CT head per protocol Right hip/pelvis x-ray given injury and tenderness Received Motrin prior to arrival, will reassess. 01/28/20 09:27 ct head without TBI, hip/pelvis without abnormality. pt comfortable, ambulating well, will arrange for return to [facility] with ambulance. Discharge - Discharge Information Problems reviewed: Yes Clinical Impression/Diagnosis: Accidental fall Qualifiers: Encounter type: initial encounter Qualified Code(s): W19.XXXA - Unspecified fall, initial encounter Alcohol dependence Qualifiers: Substance use status: unspecified alcohol-induced disorder Qualified Code(s): F10.29 - Alcohol dependence with unspecified alcohol-induced disorder Condition: Stable - Follow up/Referral - Patient Discharge Instructions Patient Printed Discharge Instructions: How to Prevent Falls Additional Instructions: Activity as tolerated. Stay hydrated. Tylenol 1000 mg every 8 hours and/or ibuprofen 600 mg every 8 hours as needed for pain. A CAT scan of the head and an x-ray of the right hip/pelvis showed no acute abnormalities. Continue your medications as previously prescribed by your physician. You will be brought back to the [facility] to continue your care. Return to the emergency department for any new or concerning symptoms, particularly persistent or worsening pain, headache or vomiting, swelling or bruising. - Post Discharge Activity
== END 2020-01-28 10:36 | disposition short-term general hospital (02) ==
LOC: JER 07:30
DX: F10.29 Alcohol dependence with unspecified alcohol-induced disorder (principal)
CPT/HCPCS: 70450-TC; 73523-TC-FY; 82962; 99285-25